=== PATIENT | female | born 1940 | race Caucasian/White ===

== ENCOUNTER → 2018-07-15 | Outpatient (RCR) | payer MEDICARE, OTHER | LOC: PT 06-22 13:51 | PROVIDERS: ATTEND Orthopaedic Surgery | DX: S42.201A Unspecified fracture of upper end of right humerus, initial encounter for closed fracture (principal); M25.511 Pain in right shoulder; M25.611 Stiffness of right shoulder, not elsewhere classified; M62.81 Muscle weakness (generalized) | CPT/HCPCS: 97010 ×6; 97110 ×8; 97112; 97139; 97140 ×5; 97162; G8984; G8985 ==

== ENCOUNTER → 2018-07-27 | Outpatient (CLI) | payer MEDICARE ==
--- NOTE | 2018-07-27 10:49 | Diagnostic Imaging Report ---
Exam: Bone mineral density study. History: Perimenopausal disorder. Osteoporosis? Comparison: None Discussion: Evaluation of the left hip and lumbar spine was performed utilizing DEXA Hologic bone densitometer. The study is technically adequate. The patient's fracture risk is compared to an age-matched control. The patient denies prior surgery/fracture of the spine, hips or forearm. Left hip femoral neck bone mineral density: 0.707 g/cm2, T-score is -1.3, Z-score is 1.0. No previous comparison. Left hip total bone mineral density: 0.602 g/cm2, T-score is -2.8, Z-score is -0.7. No previous comparison. Lumbar spine total bone mineral density: 0.716 gm/cm2, T-score is -3.0, Z-score is -0.3. No previous comparison. Impression: 1. Bone mineralization by WHO Classification: Osteoporosis. The fracture risk is increased. Recommendations: Medical evaluation for secondary causes of low bone mineral density may be appropriate. Correlate clinically for the necessity and timing of the next bone mineral density study. National [employer]opor[employer] recommendations: Initiate therapy to reduce fracture risk in postmenopausal women with -BMD t-scores below -2 by central DXA with no risk factors -BMD t-scores below -1.5 by central DXA with one or more risk factors (first deg relative with hip fracture, prior personal fracture, low body weight, smoking) -A prior vertebral or hip fracture AACE (Clinical Endocrinology) recommends treating the following: Postmenopausal women who have osteoporosis as diagnosed by fragility fractures or t scores -2.5 or below Postmenopausal women who have risk factors (including fh of hip fracture, low body weight, smoking, risk of falling, high bone turnover, advancing age) and borderline low BMD T scores of -1.5 or below Adequate intake of calcium (at least 1200mg/day) and vitamin D (400-800 IU/day). Regular weight bearing and muscle - strengthening exercises Avoid smoking and excessive alcohol Signed by: Dr. Calista De León M.D. on 07/27/2018 10:46 AM
== END ==
LOC: DX 08:57
PROVIDERS: ATTEND Family Medicine
DX: N95.9 Unspecified menopausal and perimenopausal disorder (principal)
CPT/HCPCS: 77080

== ENCOUNTER 2018-08-11 10:00 | Outpatient (RCR) | payer MEDICARE, OTHER | END 2018-08-12 | LOC: PT 10:00 | PROVIDERS: ATTEND Orthopaedic Surgery | DX: M94.261 Chondromalacia, right knee (principal); M25.511 Pain in right shoulder; M25.611 Stiffness of right shoulder, not elsewhere classified; M62.81 Muscle weakness (generalized) | CPT/HCPCS: 97139 ==

== ENCOUNTER 2018-09-09 10:00 | Outpatient (RCR) | payer MEDICARE, OTHER | END 2018-09-12 | LOC: PT 10:00 | PROVIDERS: ATTEND Orthopaedic Surgery | DX: M94.261 Chondromalacia, right knee (principal) | CPT/HCPCS: 97139 ==

== ENCOUNTER 2018-10-05 09:57 | Outpatient (RCR) | payer MEDICARE | END 2018-10-12 | LOC: PT 09:57 | PROVIDERS: ATTEND Orthopaedic Surgery | DX: M94.261 Chondromalacia, right knee (principal) | CPT/HCPCS: 97139 ==